=== PATIENT | male | born 2000 | race Caucasian/White ===

== ENCOUNTER 2022-05-21 10:20 | Emergency (ER) | payer OTHER ==
[~2022-05-21] VITALS: Ht 177.8 cm; Wt 85.0 kg
[2022-05-21] MEDS ORDERED: ONDANSETRON 4MG 2ML VIAL IV ONE (10:50)
[2022-05-21] MEDS ORDERED: NS 1,000 ML IV ONE (10:50)
[2022-05-21] MEDS ORDERED: MORPHINE 4 MG/ML 1ML VIAL IV ONE (10:50)
[2022-05-21] MEDS ORDERED: propofoL 200 MG/20 ML VIAL IV.PROC PRN (11:20)
[2022-05-21] MEDS ORDERED: NS 1,000 ML IV SCH (11:20)
[2022-05-21] MEDS ORDERED: KETAMINE HCL 200MG/20ML VIAL IV ONE (11:25)
[2022-05-21] MEDS ORDERED: MORPHINE 2 MG/ML 1ML VIAL IV ONE (11:40)
[2022-05-21 12:50] VITALS: BP 128/78
== END 2022-05-21 13:05 | disposition home or self-care (01) ==
LOC: M ED 10:23
DX: S43.015A Anterior dislocation of left humerus, initial encounter (principal); W01.0XXA Fall on same level from slipping, tripping and stumbling without subsequent striking against object, initial encounter; Y93.A5 Activity, obstacle course; Y99.1 Military activity
CPT/HCPCS: 23655; 73020; 73030; 93041; 94760; 96361; 96374; 96375; 99285; J2270; J2405

== ENCOUNTER 2022-10-11 10:54 | Observation (INO) | payer OTHER ==
[~2022-10-11] VITALS: Ht 177.8 cm; Wt 91.1 kg
[2022-10-11] MEDS ORDERED: EPINEPHrine INJ 1 MG/ML 1ML AMP IM STA ×2 (11:02→11:26)
[2022-10-11] MEDS ORDERED: diphenhydrAMINE 50MG/ML VIAL IV ONE (11:05)
[2022-10-11] MEDS ORDERED: FAMOTIDINE 20MG/2ML VIAL IVP ONE (11:05)
[2022-10-11] MEDS ORDERED: NS 1,000 ML IV ONE ×2 (11:05→11:30)
[2022-10-11] MEDS ORDERED: methylPREDNISolone 125MG 2ML VIAL IV ONE (11:05)
[2022-10-11] MEDS: ALBUTEROL SULFATE 2.5MG/0.5ML INH NEB SOLN NEB SCH ×2 (11:15→11:27)
[2022-10-11] MEDS ORDERED: ASPI-226 PO (11:20)
[2022-10-11] MEDS ORDERED: OXYC-517 PO (11:20)
[2022-10-11] MEDS ORDERED: ACET1TAB55 PO (11:20)
[2022-10-11] MEDS ORDERED: ONDA-83 PO (11:20)
[2022-10-11] MEDS ORDERED: GABA-282 PO (11:20)
[2022-10-11] MEDS ORDERED: CELE1CAP9 PO (11:20)
[2022-10-11] MEDS ORDERED: DOCU100C16 PO (11:20)
[2022-10-11 11:49] LABS: CK-MB VALUE MASS < 1.0 NG/ML (<3.6)
[2022-10-11 11:51] LABS: CPK CREATINE PHOSPHOKINASE 98 U/L (46-171); MB/CK RELATIVE INDEX 1.02 (< OR =4)
[2022-10-11 12:03] LABS: BASO % 0.4 % (0.0-1.0); EOS # 0.1 10^3/uL (0.0-0.5); EOS % 0.6 % (0.0-3.0); LYMPH # 4.7 10^3/uL (1.5-5.0); LYMPH % 44.3 % (24.0-44.0); MEAN CORPUSCULAR HEMOGLOBIN 30.2 pg (27.0-33.0); MEAN CORPUSCULAR HGB CONC 36.4 g/dl (32.0-36.5); MONO # 0.5 10^3/uL (0.0-0.8); MONO % 4.5 % (2.0-8.0); NEUTROPHILS # 5.3 10^3/uL (1.5-8.5); NEUTROPHILS % 49.9 % (36.0-66.0); PLATELET COUNT, AUTOMATED 252 10^3/uL (150-450); WHITE BLOOD COUNT 10.6 10^3/uL (4.0-10.0)
[2022-10-11 12:06] LABS: HEMATOCRIT 50.6 % (42.0-52.0); HEMOGLOBIN 18.4 g/dl (13.5-17.5)
[2022-10-11 12:24] LABS: ALBUMIN 3.8 G/DL (3.2-5.2); ALKALINE PHOSPHATASE 61 U/L (46-116); ALT/SGPT 11 U/L (7.0-40); AST/SGOT < 8 U/L (<34); BILIRUBIN,DIRECT 0.2 MG/DL (<0.4); BILIRUBIN,TOTAL 0.6 MG/DL (0.3-1.2); BLOOD UREA NITROGEN 14 MG/DL (9-23); CALCIUM LEVEL 8.9 MG/DL (8.5-10.1); CARBON DIOXIDE LEVEL 25 MMOL/L (20-31); CHLORIDE LEVEL 106 MMOL/L (98-107); CREATININE FOR GFR 0.79 MG/DL (0.70-1.30); GLUCOSE, FASTING 146 MG/DL (60-100); POTASSIUM SERUM 3.6 MMOL/L (3.5-5.1); SODIUM LEVEL 140 MMOL/L (136-145); TOTAL PROTEIN 6.2 G/DL (5.7-8.2)
[2022-10-11] MEDS ORDERED: diphenhydrAMINE 50MG/ML VIAL IV STA (12:33)
[2022-10-11] MEDS ORDERED: ACETAMINOPHEN 500 MG TAB PO PRN (13:10)
[2022-10-11] MEDS ORDERED: MED REC IN PROGRESS XX SCH (13:25)
[2022-10-11] MEDS ORDERED: HOME MED LIST COMPLETE! XX SCH (13:35)
[2022-10-11 14:40] VITALS: BP 129/67; TEMP 98.2; O2SAT 98
[2022-10-11 20:00] VITALS: BP 127/67; TEMP 98.4; O2SAT 100
[2022-10-11] MEDS: FAMOTIDINE 20MG/2ML VIAL IVP SCH (20:43)
[2022-10-11] MEDS: diphenhydrAMINE 50MG/ML VIAL IV SCH (20:44)
[2022-10-11] MEDS ORDERED: ENOXAPARIN 40MG/0.4ML SYRINGE (J1650 PER 10MG) SC SCH (21:00)
[2022-10-11 23:31] VITALS: BP 121/58; TEMP 98; O2SAT 97
[2022-10-12 04:00] VITALS: BP 111/57; TEMP 97.3; O2SAT 98
[2022-10-12 07:39] LABS: HEMATOCRIT 42.4 % (42.0-52.0); MEAN CORPUSCULAR HEMOGLOBIN 29.6 pg (27.0-33.0); MEAN CORPUSCULAR HGB CONC 34.4 g/dl (32.0-36.5); MEAN CORPUSCULAR VOLUME 85.8 fl (80.0-96.0); PLATELET COUNT, AUTOMATED 212 10^3/uL (150-450); RED BLOOD COUNT 4.94 10^6/uL (4.30-6.10); WHITE BLOOD COUNT 12.7 10^3/uL (4.0-10.0)
[2022-10-12 07:40] LABS: HEMOGLOBIN 14.6 g/dl (13.5-17.5)
[2022-10-12 07:42] LABS: BLOOD UREA NITROGEN 10 MG/DL (9-23); CALCIUM LEVEL 8.6 MG/DL (8.5-10.1); CARBON DIOXIDE LEVEL 30 MMOL/L (20-31); CHLORIDE LEVEL 106 MMOL/L (98-107); GLUCOSE, FASTING 85 MG/DL (60-100); POTASSIUM SERUM 4.4 MMOL/L (3.5-5.1); SODIUM LEVEL 142 MMOL/L (136-145)
[2022-10-12 08:15] VITALS: BP 126/74; TEMP 98.4; O2SAT 100
[2022-10-12] MEDS ORDERED: methylPREDNISolone 40MG 1ML VIAL IV SCH (09:00)
[2022-10-12] MEDS ORDERED: PRED20TA PO (09:51)
[2022-10-12] MEDS ORDERED: PEPC40TA12 PO (09:51)
[2022-10-12] MEDS ORDERED: BENA25CA4 PO (09:51)
[2022-10-12] MEDS ORDERED: EPIP0.3I2 IM (09:55)
[2022-10-12] MEDS: FAMOTIDINE 20MG/2ML VIAL IVP SCH (10:09)
[2022-10-12] MEDS: diphenhydrAMINE 50MG/ML VIAL IV SCH (10:09)
== END 2022-10-12 10:59 | disposition home or self-care (01) ==
LOC: M ED 10:54 → M ED INP 10:55 → ENRESERV 13:52 → M PCU 14:30
PROVIDERS: ADMIT Internal Medicine; ATTEND Internal Medicine
DX: T88.7XXA Unspecified adverse effect of drug or medicament, initial encounter (principal); T78.2XXA Anaphylactic shock, unspecified, initial encounter; T78.3XXA Angioneurotic edema, initial encounter; R21 Rash and other nonspecific skin eruption; Z79.82 Long term (current) use of aspirin; Z79.899 Other long term (current) drug therapy
CPT/HCPCS: 36415; 71045; 80048; 80076; 82550; 82553; 84484; 85025; 85027; 87486; 87581; 87633; 87798; 93005; 93041; 94640; 94760; 96372; 96374; 96375; 96376; 99285; J0171; J1200; J1650; J2920; J2930; S0028